=== PATIENT | male | born 1980 | race Caucasian/White ===

== ENCOUNTER 2018-06-17 00:40 | Outpatient (CLI) | payer OTHER, SELFPAY ==
--- NOTE | 2018-06-17 11:59 | DI.CT_ITS ---
SYMPTOMS/DIAGNOSIS: CHRONIC SINUSITIS, J32.[address]: There are no prior comparison exams. No intracranial hemorrhage, mass or infarct is seen. There is no atrophy or visible white matter changes. The ventricles are normal in size. The mastoid air cells appear clear. There is severe opacification of the frontal sinus, as well as several ethmoid sinuses. Please see sinus CT report. IMPRESSION: Sinus disease. No abnormality in the brain. SINUS CT: There is near-complete opacification of both frontal sinuses. There is significant mucus retention within both sphenoid sinuses as well as within both maxillary sinuses, left greater than right. There is opacification of several ethmoid sinuses. The nasal cavity appears clear. There is no evidence of bony erosion or sinus expansion. The ostiomeatal complexes appear occluded bilaterally. The orbits are unremarkable. IMPRESSION: Severe chronic pansinusitis.
== END 2018-06-17 01:00 ==
PROVIDERS: PCP Family Medicine; Visit Provider Family Medicine
DX: J32.4 Chronic pansinusitis (principal)
CPT/HCPCS: 70450; 70486

== ENCOUNTER 2019-06-01 07:32 | Emergency (ER) | payer OTHER, SELFPAY ==
[2019-06-01 07:41] VITALS: BP 143/83; PULSE 51; RESP 15; TEMP 37; O2SAT 99
--- NOTE | 2019-06-01 07:44 | W.ED.GENAD ---
Discharge Plan Disposition Patient Disposition: HOME Condition: Good Discharge Details Chief Complaint: Sorethroat Clinical Impression: Strep throat Primary Care Provider: Lesly Louis ED Provider: Kennedy Painter Home Meds and New Rx's Prescriptions: New amoxicillin 500 mg capsule 500 mg PO BID Qty: 20 RF: 0 No Action No Known Home Meds RF: 0 Discharge Instructions Instructions: Strep Throat (ED) Additional Instructions: You have strep throat. Please take the antibiotic as directed. If you notice any worsening of your symptoms, or any new symptoms such as vomiting, diarrhea, fever, chills, shortness of breath, chest pain, numbness, weakness, or fainting , please return immediately to the emergency department for reevaluation. Please follow up with your primary care provider as soon as possible for reassessment and reevaluation. As always, it was a pleasure participating in your medical care today. Referrals: Lesly Louis MD, [place] [Primary Care Provider] - Medical Decision Making Pleasant 38-year-old male with no past medical history of significance presents with complaint of sore throat for the last 24 to 48 hours, associated fever and chills. Notable erythema in the posterior oropharynx, small amount of tonsillar exudates on the left. Symptoms clinically consistent with strep throat, strep test positive. Will treat with amoxicillin 500 twice daily. Discussed red flags for which to return. I have extensively reviewed the treatment plan and discharge instructions with the patient. I have addressed all patient concerns at this time. The patient was made aware of what symptoms to monitor for that would warrant a return to the emergency department. Discussed the plan with the patient, they demonstrate verbal understanding and agreement with our assessment and plan at this time. HPI General Date/Time Provider Initiated Documentation: 06/01/19 07:44. HPI Narrative: 38-year-old male with no past medical history presents for throat pain for the last 24 hours with associated fever chills. No recent exposure to mono. No complaint of severe neck pain or nuchal rigidity. No significant cough vomiting or diarrhea. No other complaints at this time. Related Data Home Medications Medication Instructions Recorded Confirmed Unknown [No Known Home Meds] 06/01/19 06/01/19 amoxicillin 500 mg PO BID #20 cap 06/01/19 Previous Rx's Medication Instructions Recorded amoxicillin 500 mg PO BID #20 cap 06/01/19 Allergies Allergy/AdvReac Type Severity Reaction Status Date / Time No Known Allergies Allergy Verified 06/01/19 07:45 Review of Systems All systems reviewed & are unremarkable except as noted in HPI and below [facility] Medical History (Updated 06/01/19 @ 07:46 by Kennedy Painter DO) Sinusitis (Chronic) Exam Narrative Exam Narrative: 1.Const: Well-nourished, Well-developed, appearing stated age 2.Eyes: PERRL, no conjunctival injection, and symmetrical lids. 3.ENT: Atraumatic external nose and ears. Moist MM. Neck: Symmetric, trachea midline, No thyromegaly. Patient demonstrates good movement of cervical neck. There is no nuchal rigidity, no nuchal tenderness. Patient is able to flex the neck without any difficulty or significant pain. Negative Kernig's and Brudzinski sign. Mild to moderate erythema in the posterior oropharynx, tonsillar exudate present on the left. No evidence of airway compromise, tonsillar grade 2. 4.CVS: +S1/S2, No murmurs or gallops. Peripheral pulses 2+ and equal in all extremities. Brisk capillary refill in all extremities. 5.RESP: Unlabored respiratory effort. Clear to auscultation bilaterally. No wheezes rales or rhonchi 6.GI: Soft, Nontender/Nondistended, No hepatosplenomegaly. No guarding or rebound. 7.MSK: Normocephalic/Atraumatic, Extremities w/o deformity or ttp No cyanosis or clubbing, Normal movement of all extremities 8.Skin: Warm, Dry. No rashes or lesions. 9.Neuro: weaver hand loom II-XII grossly intact. Sensation grossly intact, no focal neurologic deficits. 10.Psych: (AAO) x3. Appropriate mood and affect Course Lab/Test Results Lab/Test Results: POC Strep Test-NATHANAEL(Rapid) Start: 06/01/19 07:40 Freq: .Rapid Strep Test Status: Active Protocol: Document 06/01/19 07:40 SGL (Rec: 06/01/19 07:40 [facility] [id number]) Strep test-NATHANAEL(Rapid)-POC POC-Strep test-NATHANAEL (Rapid) Positive POC-Strep test-NATHANAEL (Rapid) Positive
[2019-06-01] MEDS: Amoxicillin 500 MG CAP PO (07:48)
== END 2019-06-01 07:50 | disposition home or self-care (01) ==
PROVIDERS: Emergency Provider Student in an Organized Health Care Education/Training Program; PCP Family Medicine
DX: J02.0 Streptococcal pharyngitis (principal)
CPT/HCPCS: 87880; 99283

== ENCOUNTER 2019-11-21 03:05 | Outpatient (CLI) | payer OTHER, SELFPAY ==
--- NOTE | 2019-11-21 14:35 | DI.MRI_ITS ---
EXAM: MR UPPER JOINT RT WO CLINICAL HISTORY: RT ROTATOR CUFF TENDINITIS,RT SHOULDER PAIN,M25.511. TECHNIQUE: Multiplanar multisequence MRI was performed. COMPARISON: 25 March 2019 FINDINGS: BONES: There is no fracture or contusion pattern. JOINTS: The acromioclavicular joint is normal. The glenohumeral joint is normal. TENDONS: Supraspinatus: Unremarkable. Infraspinatus: Unremarkable. Subscapularis: Unremarkable. Teres Minor: Unremarkable. Biceps and [place]: Unremarkable. MUSCLES: Unremarkable. GLENOID LABRUM: Question of a small posterosuperior defect.. SOFT TISSUES: Unremarkable. LIGAMENTS: Unremarkable. OTHER: There is a fluid collection in the spinoglenoid notch measuring 2.4 x 1.4 by 1.1 cm. This has decreased in size significantly from the previous exam. Subacromial and subdeltoid bursae are unrem arkable. IMPRESSION: Decreased size of fluid collection in the spinoglenoid notch. No rotator cuff tear is identified. Que stion of a small post or superior defect of the glenoid labrum. DATA REPOSITORY:
== END 2019-11-21 03:25 ==
PROVIDERS: PCP Family Medicine; Visit Provider Physician Assistant
DX: M25.511 Pain in right shoulder (principal)
CPT/HCPCS: 73221

== ENCOUNTER 2020-01-23 02:36 | Outpatient (CLI) | payer OTHER, SELFPAY ==
[2020-01-24 21:14] LABS: COVID-19 RT-PCR Result NEGATIVE (Negative)
== END 2020-01-23 02:56 ==
PROVIDERS: PCP Family Medicine; Visit Provider Ophthalmology
DX: Z11.59 Encounter for screening for other viral diseases (principal); Z01.818 Encounter for other preprocedural examination
CPT/HCPCS: U0003

== ENCOUNTER 2021-02-24 14:45 | Outpatient (CLI) | payer OTHER, SELFPAY ==
--- NOTE | 2021-02-24 15:50 | DI.MRI_ITS ---
Exam(s) MR UPPER JOINT RT WO EXAM: MR UPPER JOINT RT WO CLINICAL HISTORY: Recurrent weakness pain,paralabral cyst,slap lesion,s43.431a TECHNIQUE: Multiplanar multisequence MRI of the shoulder was performed. COMPARISON: MR from 03/25/2019 and 11/21/2019 were reviewed FINDINGS: MARROW:There is no evidence of fracture, Hill-Sachs deformity, nor ominous osseous lesions. ROTATOR CUFF MECHANISM: AC JOINT/ACROMIUM: There is some degenerative changes in the AC joint. This has increased from the p rior study. Although there are no downgoing osteophytes, is now some intraosseous edema as well as s mall degenerative subarticular cysts on both sides the joint. Mass seen on the axial images. These were not evident on the 03/25/2019 study. Mild impingement There is no evidence of os acromiale. Supraspinatus: Intact. No evidence of tear nor muscle atrophy. Infraspinatus: Intact. No evidence of tear nor muscle atrophy. Teres Minor: Intact. No evidence of tear nor muscle atrophy. Subscapularis/anterior cuff: Intact. No abnormal signal at the level of the multipennate insertional fibers. No significant tear nor atrophy. BICEPS TENDON: Normally position in the intertubercular groove. No evidence of tear. No tenosynovitis. LABRUM: Again noted is an abnormal fluid collection spinoglenoid notch. However, this has significan tly increased in size when compared to the most recent MRI scan of 11/20/2019. This appears to be of paralabral cyst originating off of a relatively focal tear of the posterior aspect of the superior l abrum. This extends posteromedially for distance of 4.9 cm, exhibits a maximum AP measurement of 1.6 cm and maximum craniocaudal measurement of 1.8 cm. Within the collection just above the osseous gle noid there is a focus of hypointensity measuring 4 x 4 millimeter which is probably a calcified body entrapped therein. There is a thin neck in this collection (which exhibits a width of 3 millimeters) which connects the central to the more peripheral aspect of this collection. The collection extends posteriorly interposed between the scapular body and the infraspinatus-teres minor muscles. There i s no atrophy nor denervation signal within these muscles. With respect of the labrum itself, there does not appear to be tearing more anteriorly in the superio r labrum nor more inferiorly in the posterior labrum. There is no tearing of the anterior labrum. T he inferior labrum appears intact. There is no evidence of avulsion of the anterior-inferior labrum, capsule, inferior glenohumeral liga ment complex nor disruption of the scapular periosteum to suggest the presence of a [place] lesion. GLENOHUMERAL JOINT: No joint effusion nor obvious additional loose intra-articular bodies. No chondr al defects. No osteophytes. No degenerative subarticular cysts. No evidence of capsular tear. IMPRESSION: 1. Compared to the prior MRI scan of November 21, 2019 the size of the previously described paralabral cy st has increased, with measurements as above. It is again noted to be extending medially between the scapular body and the infraspinatus/teres minor. However, unlike the 1st study of March 25, 2019, there is no component X superiorly interposed between the supraspinatus and superior glenoid. 2. On today's study the collection appears to contain a 4 x 4 millimeter probable loose body just ab ove the glenoid fossa level. 3. No evidence of rotator cuff tendinitis nor tears and no evidence of atrophy nor denervation signal within the musculature. 4. There has been some increase in degenerative change in the acromioclavicular joint when compared to the prior studies, this consisting of intraosseous edema and small degenerative subarticular cysts on both sides the joint. There does not appear to be increasing degenerative change in the glenohum eral joint. DATA REPOSITORY:
== END 2021-02-24 15:05 ==
PROVIDERS: PCP Family Medicine; Visit Provider Student in an Organized Health Care Education/Training Program
DX: S43.431A Superior glenoid labrum lesion of right shoulder, initial encounter (principal); X58.XXXA Exposure to other specified factors, initial encounter
CPT/HCPCS: 73221

== ENCOUNTER 2021-04-26 02:15 | Outpatient (CLI) | payer OTHER, SELFPAY | END 2021-04-26 02:16 | disposition home or self-care (01) | LOC: LBO 02:15 | PROVIDERS: PCP Family Medicine; Visit Provider Student in an Organized Health Care Education/Training Program ==

== ENCOUNTER 2021-04-26 15:23 | Outpatient (REF) | payer OTHER, SELFPAY ==
[2021-04-26 11:02] LABS: Source Nasal/Nares
[2021-04-26 15:38] LABS: COVID-19 PCR Negative (Negative)
== END 2021-04-26 15:24 | disposition home or self-care (01) ==
LOC: LBN 15:23
PROVIDERS: PCP Family Medicine; Visit Provider Student in an Organized Health Care Education/Training Program
DX: Z20.822 Contact with and (suspected) exposure to COVID-19 (principal); Z01.818 Encounter for other preprocedural examination
CPT/HCPCS: 87635

== ENCOUNTER 2021-04-28 06:10 | Day surgery (SDC) | payer OTHER, SELFPAY ==
[2021-04-28] VITALS (10 sets, daily range): BP systolic 110–133; BP diastolic 55–85; PULSE 61–81; RESP 15–25; TEMP 36.4–36.9; O2SAT 95–98; BMI 31.1
[2021-04-28] MEDS: Lactated Ringers 1,000 ML 100 ML IV (06:37)
--- NOTE | 2021-04-28 07:00 | W.ANESPRE ---
General Info Date of Service Date Performed: 04/28/21 Height: 6 ft 1 in Weight: 107.2 kg Body Mass Index (BMI): 31.1 Surgical Procedure: Operation Date: 04/28/21 07:40 Proposed Procedures Side Surgeon p Shoulder Arthroscopy W/BICEPS TENODESIS, PARA-LABRAL CYST DECOMPRESSION AND SLAP/LABRAL REPAIR Right Laith Sepulveda MD Meds Allergies and Home Medications Allergies Allergy/AdvReac Type Severity Reaction Status Date / Time No Known Allergies Allergy Verified 04/26/21 13:50 Home Medication Medication Instructions Recorded Unknown [No Known Home Meds] 06/01/19 Current Visit Medications: Current Medications Generic Name Dose Route Start Last Admin Trade Name Freq PRN Reason Stop Dose Admin Ringer's Solution 1,000 mls @ 100 mls/hr 04/28/21 06:00 04/28/21 06:37 IV 05/27/21 23:59 100 mls/hr INFUSION ALYSON Administration Cefazolin Sodium/Dextrose 2 gm in 50 mls @ 100 mls/hr 04/28/21 06:00 Ancef Duplex IVPB 04/28/21 16:00 PREOP ALYSON IV Miscellaneous Supplies 1 each 04/28/21 06:00 Iv Access IV 05/27/21 23:59 DIRECTED ALYSON Sodium Chloride 0 ml 04/28/21 06:00 Normal Saline Flush 10 Ml Syr IV 05/27/21 23:59 PRN PRN Sodium Chloride 0 ml 04/28/21 06:00 Normal Saline 10 Ml Vial IJ 05/27/21 23:59 DIRECTED PRN Sterile Water 0 ml 04/28/21 06:00 Water,Injection,Sterile 10 Ml Vial IJ 05/27/21 23:59 DIRECTED PRN PFSH Active Problems Active Problems: Problem Status Onset Code Sinusitis J32.9 Strep throat J02.0 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 SLAP lesion of right shoulder S43.431A Medical History Medical History Back fracture Lumbar back fracture Right rotator cuff tendonitis Injected 08/16/2018 Surgical History Surgical History Hx of [facility] Tobacco Smoking/Tobacco Use Status: Never Alcohol Alcohol Intake: current Alcohol intake frequency: 0-2 drinks per day Alcohol type: beer, wine and hard liquor Substance Use Substance use type: does not use Vital Signs and Lab Results Vital Signs Most Recent Vital Signs in EMR: Most Recent Vital Signs Temp Pulse Resp BP Pulse Ox 36.5 C 72 17 133/85 98 04/28/21 06:14 04/28/21 06:14 04/28/21 06:14 04/28/21 06:14 04/28/21 06:14 Lab Results Blood Type / Crossmatch: No Data to Display Complete Blood Count: No Data to Display Complete Metabolic Panel: No Data to Display Liver Function Panel: No Data to Display Coagulation Panel: No Data to Display Cardiac Panel: No Data to Display Arterial Blood Gas: No Data to Display Venous Blood Gas: No Data to Display Pancreas Panel: No Data to Display Thyroid Panel: No Data to Display Infectious Disease: Coronavirus (COVID-19)(PCR) Negative (Negative) 04/26/21 10:15 04/26/21 Coronavirus 2019 Source Nasal/Nares 04/26/21 10:15 04/26/21 Blood Cultures: No Data to Display Toxicology Panel: No Data to Display Anesthesia Assessment and Plan Anesthesia History Personal History: No History of Anesthesia Complications Family History: No Family History of Anesthesia Complications Exercise Tolerance Exercise Tolerance: Metabolic Equivalents>4 Pertinent Negatives Pertinent Negatives: No Symptoms of GERD Cardiac & Pulmonary Exam Cardiac Exam: Normal S1/S2 Heart Sounds Pulmonary Exam: Clear Bilateral Breath Sounds Implantable Cardiac Device Does patient have a Pacemaker or an ICD?: No Airway Exam Known Difficult Airway: No Mallampati Class: 1 Mouth Opening: Normal (> 3cm) Thyromental Distance: Greater than 3 cm Neck Range of Motion: Full ROM Neck Circumference: Normal Teeth Condition: Normal Dentition ASA Classification ASA Score: ASA 2 Emergency Case?: No NPO Status NPO Status: NPO Clears >2 hours, Solids >8 hours Anesthesia Plan Resuscitation Status: Full Code Anesthesia Technique: General Anesthesia Airway Planned: Endotracheal Tube Pain Management: Surgeon and patient request nerve block Monitors Used: Standard Monitors
[2021-04-28] MEDS: ceFAZolin 2 GM/50 ML BAG IVPB (07:29)
--- NOTE | 2021-04-28 08:20 | W.ANESNERVE ---
Nerve Block Single Injection Procedure Date and Time Date Performed: 04/28/21 Procedure Start: 07:14 Location Where Procedure Performed Procedure Location: Day Surgery Unit Reason Performed: Postoperative Analgesia Requesting Provider: Laith Sepulveda Timeout Performed Timeout Performed: Yes Monitoring Used ECG, Blood Pressure, SpO2 and See EMR for corresponding vital signs Sterility Sterility: Hand Hygiene, Surgical Cap, Surgical Mask, Sterile Gloves and Chlorhexidine Sedation Given During Procedure Sedation Given (Indicate Dose Given): No Sedation given Patient Mental Status Patient Mental Status: Awake Nerve Block 1st Nerve Block: Laterality: Right Block Type: Interscalene Needle / Catheter Used: 100mm SonoPlex II Local Anesthetic Bolus (Indicate Dose Given): Lidocaine used for local infiltration of skin, Injected in 3-5ml increments after negative blood aspiration, Bupivacaine 0.5% Dose:: 10ml and Exparel Dose:: 10ml Additives (Indicate Dose Given): None Ultrasound: Sterile probe cover and gel used Ultrasound Image Saved?: Yes Nerve Stimulator: Not Used Paresthesia: Right Paresthesia Duration: Transient (Into right shoulder when dissecting fascial plane, needle not engaged with plexus.) Procedure Tolerated: No Complications and Patient tolerated well Procedure Outcome: Successful Performed By: Kolby Shepard
--- NOTE | 2021-04-28 11:00 | W.PM.OP ---
Date of service: 04/28/21 Time of Service: 07:30 Operative Note Operative Note DATE OF PROCEDURE: 04/28/21 PRE-OP DIAGNOSIS: Right: 1. SLAP tear 2. Spinoglenoid notch cyst POST-OP DIAGNOSIS: same PROCEDURE: Right: 1. Arthroscopic biceps tenodesis, CPT# 04233. This involved arthroscopically suturing and reattaching the long head of the biceps tendon to the proximal humerus at the superior margin of the bicipital groove with a screw at the correct tension. 2. SLAP repair, CPT# 00074. This involved indirect decompression of the paralabral cyst and suture anchor repair of the posterior superior labral tear. The medical billing assistant was medically required in order to help assist in techniques above, which require positioning the arm, holding the arthroscope, and manipulating multiple instruments and sutures at the same time. This cannot be done without the help of an experienced medical billing assistant. SURGEON: Laith Sepulveda PIPELINE EXECUTIVE: Ridge Price ANESTHESIA TYPE: Local By Surgeon, General LMA/ETT and Primary Nerve Block Refer to Anesthesia Record ESTIMATED BLOOD LOSS: 10 PATHOLOGY: none sent COMPLICATIONS: None Patient was transported to: PACU Patient's condition: stable Implants: Arthrex: Knotless 4.75mm SwiveLock x 1 and Knotless 1.8mm FiberTak x1 Indications: The patient was diagnosed with the above conditions and appropriately indicated for surgical intervention. Please see complete medical record for details. Findings: Exam under anesthesia: Full symmetrical range of motion with no instability or reproducible mechanical symptoms Glenohumeral joint: Intact articular cartilage. Intact subscapularis. Intact articular sided rotator cuff. Intact intra-articular long head biceps tendon without tearing, fraying, or injection. Anterosuperior minor labral fraying with small disruption of the posterior superior chondral labral junction posterior to the biceps anchor. Limited posterior labral fraying. Procedure Description: In the operating room, general anesthesia was induced. Bilateral shoulders were examined. The patient was positioned in the beachchair position. All bony prominences were well-padded. Preoperative cefazolin 2 g antibiotics were administered. The shoulder was prepped and draped in the usual sterile fashion. The correct patient, procedure, and side of the procedure were all verified prior to incision. Starting through the posterior portal a standard complete diagnostic arthroscopy was performed of the glenohumeral joint including inspection of the long head of the biceps, anterior and superior labrum, subscapularis tendon, supraspinatus and infraspinatus tendons, and axillary recess. The glenoid and humeral head cartilage as well as the posterior labrum were inspected from an anterior viewing portal. Significant findings noted above. A 7 mm rigid cannula was inserted anteriorly for arthroscopic biceps tenodesis. An all-arthroscopic suprapectoral biceps tenodesis was then performedl using a Loop N Tack method with a SutureTape FiberLink cinched around and through the tendon. The biceps was tenotomized from the superior labrum and fixated with a knotless SwiveLock suture anchor at the superior margin of the bicipital groove taking care to preserve length tension relationship. The knotless repair stitch was then passed through the biceps tendon at the tenodesis site before being passed back through the anchor and the knotless mechanism engaged securing the tendon with additional compressive fixation. The repair was inspected through range of motion and probed and demonstrated excellent fixation strength. Attention was then turned to the spinal glenoid notch para labral cyst. A 5.5 mm cannula was inserted posteriorly and viewing switched to anteriorly. Various probes and elevators were used to inspect the labrum and search for the cyst. The minor amount of anterosuperior labral fraying and small amount of posterior labral fraying was lightly debrided to a stable margin. The posterior superior labrum demonstrated a small limited defect with the remainder of the labrum quite stable and intact. Tissue quality was excellent. The cyst could not be visualized through the labral tear. A spinal needle was then used through the port of [place] targeting the cyst location and used to aspirate a couple cc of thick gelatinous material. The spinal needle was redirected carefully medially inferiorly and towards the scapular spine with an additional few milliliters of clear yellowish thick gelatinous cyst material aspirated. A spinal needle was also used percutaneously through the skin and directed at the infraspinatus fossa more medially without any additional cyst material withdrawn. Direct manual posterior pressure did not express any additional significant cyst fluid. The percutaneous kit was used to dilate the port of [place]. The repair site was prepared to optimize healing with a small meniscal rasp. Additional blunt probe was passed carefully medially without any cyst material encountered or able to be expressed. The drill guide was then secured to the posterior superior glenoid rim and the drill used through the guide followed by fiber tack anchor placement. The drill was passed in, out, and back in and out given the solid bone. The fiber tack was deployed and did not have the most secure fixation strength. Through the posterior portal a self retrieving suture passer was used to retrieve the repair stitch around the labrum, but while shuttling this repair stitch the anchor pulled back and was removed entirely with its sutures. The drill guide was then placed slightly more superior and directed slightly more medial to avoid convergence. The drill was passed through the guide a single time followed by fiber tack anchor placement. This anchor deployed well with excellent fixation strength. The 5.5 mm posterior cannula was changed to a 7 mm cannula to allow a curved lasso to be used to shuttle the repair suture carefully only around the labrum. The half-pipe cannula through the percutaneous portal was used to retract and ensure no capsular tissue was incorporated. The repair suture was then shuttled through the knotless mechanism in the suture anchor and sequentially tightened under direct visualization achieving excellent closure of the defect and fixation of the labral zone of injury to the glenoid rim. Repair was probed and inspected through shoulder range of motion demonstrated excellent fixation strength with no additional defects superiorly or posteriorly. Again for the final times the spinal needle was used to aspirate the cyst area arthroscopically as well as percutaneously over the marked palpable site of fullness on the posterior shoulder. No additional cystic material could be withdrawn and the cyst area was thoroughly trephinated. The shoulder was copiously irrigated and drained of arthroscopic fluid. All portal sites were copiously irrigated. The portals were closed using 3-0 Monocryl in a buried fashion and then covered with Mastisol, Steri-Strips, Xeroform, dry gauze, and ABDs. The dressings were covered and secured with Medipore tape. The operative extremity was placed into a sling for immobilization. The patient awoke from anesthesia without complication and was transferred to the recovery room in a stable condition.
[2021-04-28] MEDS: EPINEPHrine 30 MG/30 ML VIAL (11:02)
--- NOTE | 2021-04-28 11:10 | W.PM.DSUDISC ---
Discharge Plan Disposition Patient Disposition: HOME Condition: Stable Discharge Details Reason For Visit: Right shoulder surgery Attending Provider: Laith Sepulveda Primary Care Provider: Lesly Louis Home Meds and New Rx's Prescriptions: New naproxen 250 mg tablet 250 - 500 mg PO BID PRNQty: 40 RF: 0 aspirin 81 mg tablet,delayed release (DR/EC) 81 mg PO DAILY 14 Days Qty: 14 RF: 0 oxycodone 5 mg tablet 5 - 10 mg PO Q4H MDD 30 mg PRN (Reason: moderate to severe pain) Qty: 18 RF: 0 Discharge Instructions Additional Instructions: Surgery: Right shoulder arthroscopy with biceps tenodesis, para-labral cyst decompression, and SLAP repair. Activity: For 4 weeks, you should keep your shoulder at your side in a neutral position most of the time except for light ADLs and physical therapy. Encourage full elbow wrist and hand range of motion. Pendulums, isometrics, and scapular stability okay. You should use the sling whenever you are up and about or out of the house. You may adjust the abduction pillow or remove it for comfort. At home it is best to remove the sling and rest the arm on a pillow at your side. Avoid any significant abduction external rotation for 6 weeks. Concentric biceps strengthening after 4 weeks followed by eccentric after 8 weeks. A physical therapy prescription will be sent electronically to begin in about 2-3 weeks. Prescriptions: Aspirin 81 mg take 1 daily to prevent a blood clot for 2 weeks Naproxen 250 mg take 1-2 every 12 hours with a meal as needed for moderate pain Oxycodone 5 mg take 1-2 every 4-6 hours as needed for severe pain You may use [id number] Tylenol (acetaminophen) as needed for mild pain. These pain medications may be taken all at once or in different combinations as needed. Also, recommend Colace (docusate) as a stool softener as surgery and pain medicine cause constipation. Dressings: Remove shoulder bandage after 3 days. Leave the sticky Steri-Strips in place until they fall off or remove them after you shower. Cover the incisions with Band-Aids or leave them open to air. You may shower after 5 days. Follow-up: 10-[address] Sepulveda You may take off the leg compression stockings this evening at home. You may also leave them on a few days longer if you have a history of leg swelling or edema. Let us know right away if you develop any redness, drainage, fevers, chest pain, or trouble breathing. Do not drink alcohol or drive for at least 24 hours after anesthesia. Please call the office during business hours with any questions or concerns. Referrals: Laith Sepulveda MD [ [facility] STAFF PHYSICIAN] - Discharge Orders Discharge Orders: Discharge Order (Routine); Ordered 04/28/21 Ordered By: Laith Sepulveda DS: Diagnosis Discharge Diagnosis (1) Paralabral cyst of right shoulder: Status: Acute (2) SLAP lesion of right shoulder: Status: Acute
--- NOTE | 2021-04-28 12:11 | W.ANESPOSTOP ---
Postoperative Evaluation Date, Time and Location Date Performed: 04/28/21 Time Performed: 12:11 Patient Location: PACU Vital Signs Most Recent Imported Vital Signs: Most Recent Vital Signs Temp Pulse Resp BP Pulse Ox 36.6 C 81 20 116/68 96 04/28/21 12:00 04/28/21 12:00 04/28/21 12:00 04/28/21 12:00 04/28/21 12:00 Pain Score Most Recent Pain Score: Most Recent Pain Score Pain Level 0 04/28/21 12:00 Assessment Mental Status: Awake (Alert & Oriented to Patient Baseline) Airway and Respiratory Function: Patent airway with normal (patient baseline) respiratory exam Cardiovascular Function: Hemodynamically Stable Hydration Status: Adequately Hydrated Nausea & Vomiting: No Nausea or Vomiting Pain: Pt. Denies Any Pain Peripheral Nerve Block: Regional nerve block not resolved at time of post operative discharge
== END 2021-04-28 13:39 | disposition home or self-care (01) ==
PROVIDERS: PCP Family Medicine; Visit Provider Student in an Organized Health Care Education/Training Program
PROC: (CPT 29805; principal; 2021-04-28 07:30)
DX: S43.431A Superior glenoid labrum lesion of right shoulder, initial encounter (principal); X58.XXXA Exposure to other specified factors, initial encounter; M25.811 Other specified joint disorders, right shoulder
CPT/HCPCS: 29807; 29828; 76942; J0690; J1100; J1885; J2001; J2250; J2370; J2405; J2704

== ENCOUNTER 2023-05-21 04:03 | Outpatient (CLI) | payer OTHER, SELFPAY ==
[2023-05-21 08:07] LABS: BUN 13 mg/dL (7-18); CREATININE 0.9 mg/dL (0.70-1.30); Calculated LDL 73 mg/dL (<100); Chloride 102 mmol/L (98-107); Cholesterol 141 mg/dL (<200); Estimated GFR 110.73 (mL/min/1.73m2); Glucose 103 mg/dL (74-106); HDL Cholesterol 62 mg/dL (40-60); Potassium 4.3 mmol/L (3.5-5.1); Sodium 141 mmol/L (136-145); Triglyceride 32 mg/dL (<150)
== END 2023-05-21 04:04 | disposition home or self-care (01) ==
LOC: LBO 04:03
PROVIDERS: PCP Nurse Practitioner Adult Health; Visit Provider Nurse Practitioner Adult Health
DX: Z13.1 Encounter for screening for diabetes mellitus (principal); Z13.220 Encounter for screening for lipoid disorders
CPT/HCPCS: 36415; 80048; 80061

== ENCOUNTER 2025-01-16 06:18 | Day surgery (SDC) | payer OTHER, SELFPAY ==
--- NOTE | 2025-01-15 16:22 | ANES.PREOP_ITS ---
General Info Date of Service Date Performed: 01/16/25 Height: 6 ft 1.5 in Weight: 107 kg Body Mass Index (BMI): 30.7 Surgical Procedure: Operation Date: 01/16/25 07:35 Proposed Procedure Side Surgeon p Colonoscopy/Gastroscopy Radha Mays MD Meds Allergies and Home Medications Allergies Allergy/AdvReac Type Severity Reaction Status Date / Time No Known Allergies Allergy Verified 01/16/25 06:27 Home Medication ?Medication ?Instructions ?Recorded omeprazole 20 mg capsule,delayed 20 mg PO DAILY PRN he artburn #40 03/22/23 release caps dicyclomine 10 mg capsule 10 mg PO TID PRN abdominal 0 11/29/23 pain/spasm #30 caps Current Visit Medications: Current Medications Generic Name Dose Route Start Last Admin Trade Name Freq PRN Reason Stop Dose Admin Ringer's Solution 1,000 mls @ 80 mls/hr 01/16/25 06:00 IV 01/16/25 23:59 INFUSION ALYSON IV Miscellaneous Supplies 1 each 01/16/25 06:00 Iv Access IV 01/16/25 23:59 DIRECTED ALYSON Sodium Biphosphate/Sodium Phosphate 133 ml 01/16/25 06:00 Na Phosphate Enema-Adult 133 Ml Btl CO 01/16/25 23:59 DIRECTED PRN Sodium Chloride 0 ml 01/16/25 06:00 Normal Saline Flush 10 Ml Syr IV 01/16/25 23:59 PRN PRN Sodium Chloride 0 ml 01/16/25 06:00 Normal Saline 10 Ml Vial IJ 01/16/25 23:59 DIRECTED PRN Sterile Water 0 ml 01/16/25 06:00 Water,Injection,Sterile 10 Ml Vial IJ 01/16/25 23:59 DIRECTED PRN PFSH Active Problems Active Problems: Problem Status Onset Code Chronic diarrhea of unknown origin Acute K52.9 Change in consistency of stool Acute ~2023 R19.5 Impaired fasting glucose Acute ~04/2023 R73.01 Heartburn Acute ~2022 R12 Medical History Medical History History of anal fissures SLAP lesion of right shoulder Paralabral cyst of right shoulder Back fracture Lumbar back fracture Strep throat Right rotator cuff tendonitis Injected 08/16/2018 Sinusitis (~2018) h/o RX cipro (cover risk of pseudomonas from netipot); h/o RX augmentin--he may call/portal if symptoms & try augmentin first Surgical History Surgical History S/P colonoscopy (~2011) secondary to rectal bleeding; negative study; next colo at usual screening S/P shoulder surgery (04/28/21) RIGHT cyst decompression, labral repair and biceps tendons Hx of LASIK (01/26/22) Bilateral Tobacco Smoking/Tobacco Use Status: Never Passive smoking exposure: No Second hand exposure: No Alcohol Alcohol Intake: current Alcohol intake frequency: 0-2 drinks per day Alcohol type: beer, wine and hard liquor Substance Use Substance use: Never Substance use type: does not use Vital Signs and Lab Results Vital Signs Most Recent Vital Signs in EMR: Temp Pulse Resp BP Pulse Ox 36.3 C L 54 L 18 143/90 H 99 01/16/25 06:20 01/16/25 06:20 01/16/25 06:20 01/16/25 06:20 01/16/25 06:20 Lab Results Complete Metabolic Panel: Hemoglobin A1c, (4.5-5.7) 5.4 % 12/17/24, 18:4 0 Anesthesia Assessment and Plan Anesthesia History Personal History: No History of Anesthesia Complications Family History: No Family History of Anesthesia Complications Exercise Tolerance Exercise Tolerance: Metabolic Equivalents>4 Cardiac & Pulmonary Exam Cardiac Exam: Normal S1/S2 Heart Sounds Pulmonary Exam: Clear Bilateral Breath Sounds Implantable Cardiac Device Does patient have a Pacemaker or an ICD?: No Airway Exam Known Difficult Airway: No Mallampati Class: 1 Mouth Opening: Normal (> 3cm) Thyromental Distance: Greater than 3 cm Neck Range of Motion: Full ROM Neck Circumference: Normal Teeth Condition: Normal Dentition ASA Classification ASA Score: ASA 2 Emergency Case?: No NPO Status NPO Status: NPO Clears >2 hours, Solids >8 hours Anesthesia Plan Resuscitation Status: Full Code Anesthesia Technique: General Anesthesia Airway Planned: Natural Airway Monitors Used: Standard Monitors Preoperative Comments:: 44 yo for EGD/colo. Sig PMHx: GERD (omeprazole). Previous Anes: - shoulder, glide 3 grade 1, easy mask.
[2025-01-16 06:20] VITALS: BP 143/90; PULSE 54; RESP 18; TEMP 36.3; O2SAT 99
[2025-01-16] MEDS: Lactated Ringers 1,000 ML 80 ML IV (06:49)
[2025-01-16 07:00] VITALS: BMI 30.7
--- NOTE | 2025-01-16 07:37 | BOWEL_PTH ---
PATIENT: Sebastián Lynch LOC: [facility] U#:[id number] AGE/SX: 44/M ROOM: RE01/16/[address]: Radha Mays MD : 1980 BED: DIS: 01/16/2025 SPEC #: [id number] RECD: 01/16/25 12:25 STATUS: JENNIFER PERERA #: [id number] TALITA: 01/16/25 07:[address]: Radha Mays DEPT: Surgical Specimen RECD BY: Susie Vieira ENTERED: 01/16/25 12:28 SP TYPE: Bowel OTHR DR: Amy Brandon, PATRICK Tissues: 1 - BIOPSY BOWEL 2 - STOMACH BIOPSY 3 - BIOPSY BOWEL 4 - BIOPSY BOWEL 5 - BIOPSY BOWEL 6 - BIOPSY BOWEL 7 - BIOPSY BOWEL 8 - BIOPSY BOWEL 9 - BIOPSY BOWEL Procedures: GROSS AND MICRO LEVEL 4 IMMUNOPEROXIDASE STAIN Comments: [id number]
[2025-01-16 08:04] VITALS: BP 114/83; PULSE 71; RESP 16; TEMP 36.4; O2SAT 96
--- NOTE | 2025-01-16 08:11 | W.PM.DSUDISC ---
Date of service: 01/16/25 Discharge Plan Disposition Patient Disposition: Home Condition: Stable Discharge Details Attending Provider: Radha Mays Primary Care Provider: Amy Brandon Home Meds and New Rx's Prescriptions: New colestipol 1 gram tablet 1 g PO DAILY Qty: 30 0RF Continued omeprazole 20 mg capsule,delayed release(DR/EC) 20 mg PO DAILY PRN (Reason: heartburn) Qty: 40 3RF dicyclomine 10 mg capsule 10 mg PO TID PRN (Reason: abdominal pain/spasm) Qty: 30 0RF Discharge Instructions Additional Instructions: EGD was normal. Biopsies taken to check for H pylori and celiac sprue. Will let you know about results when they are available. Colonoscopy was also normal. You had two tiny polyps that I removed. You may need another colonoscopy in 5 years if either of them is an adenoma polyp. I will let you know when the results are back. I took random biopsies all along the TI and colon and rectum today to evaluate for microscopic colitis. I expect them to be normal biopsies based on the way things looked but will let you know when the results are back. I have prescribed colestipol to you. Start by taking one tablet once a day and se how the texture of your stool responds. If you get constipated, discontinue it for a couple of days until your stools return to normal/loose. Then resume it at one half tablet per day and see how you feel. Feel free to adjust the dose you take up to two tablets per day to control the diarrhea. Lets discuss your symptoms in office - return to see me in 2-4 weeks. Activity:: Activity as Tolerated Diet:: As Tolerated Discharge Orders Discharge Orders: Discharge Order (Routine); Ordered 01/16/25 Ordered By: Radha Mays DS: Diagnosis Discharge Diagnosis (1) Chronic diarrhea of unknown origin: Status: Acute (2) Polyp of transverse colon: Status: Acute (3) Polyp of rectum: Status: Acute
--- NOTE | 2025-01-16 08:16 | W.COLOREPORT ---
Date of service: 01/16/25 Time of Service: 07:55 Colonoscopy Report Date of procedure: 01/16/25 Pre-op diagnosis general: Diarrhea of unknown origin Post-op diagnosis procedure note: other (1. Diarrhea of unknown origin. 2. transverse colon polyp. 3. rectum polyp) Procedure: Colonoscopy with biopsy Surgeon: Radha Mays Anesthesia Type: General:No Airway Estimated blood loss (mL): 2 Pathology: other (1. Terminal ileum biopsy. 2. ascending colon biopsy. 3. transverse colon polyp. 4. transverse colon biopsy. 5. descending colon biopsy. 6. Rectum biopsy. 7. rectum polyp) Prep: Miralax/Dulcolax (Excellent) Procedure Description: Informed consent was obtained and the patient was taken to the procedure area. The patient was placed in left lateral decubitus position on the procedure table. Timeout was performed. Anesthesia was induced. A lubricated colonoscope was inserted through the anus and passed to the cecum. The cecum was identified by the ileocecal valve and the appendiceal orifice. The scope was then slowly withdrawn and the colonic and rectal mucosa examined. TI intubated and examined. It appears normal. There is no inflammatory change in colon or rectum. Transverse colon polyp 5mm sessile excised with cold forceps. No diverticulosis was seen. Rectum polyp 3mm sessile excised with cold forceps. The scope was retroflexed in the anorectal junction examined. Uncomplicated internal hemorrhoids present. Due to chronic diarrhea, cold forceps biopsies obtained for evaluation for microscopic colitis. Biopsies obtained from terminal ileum, ascending colon, transverse colon, descending colon and rectum. Assessment and plan: Diarrhea transverse colon polyp rectum polyp Unremarkable colonoscopy for cause for diarrhea. Follow up in office to review biopsy results. If normal, this is IBS. I will try colestipol for him, rx sent. Next colonoscopy due in 5 years if either polyp is adenomatous. Due in 10 years if both are hyperplastic.
[2025-01-16 08:27] VITALS: BP 111/72; PULSE 71; RESP 16; TEMP 36.2; O2SAT 99
--- NOTE | 2025-01-16 08:31 | W.ANESPOSTOP ---
Postoperative Evaluation Date, Time and Location Date Performed: 01/16/25 Time Performed: 08:20 Patient Location: Day Surgery Unit Vital Signs Most Recent Imported Vital Signs: Most Recent Vital Signs Temp Pulse Resp BP Pulse Ox 36.4 C L 71 16 114/83 96 01/16/25 08:04 01/16/25 08:04 01/16/25 08:04 01/16/25 08:04 01/16/25 08:04 Pain Score Most Recent Pain Score: Most Recent Pain Score Pain Level 0 01/16/25 08:04 Assessment Mental Status: Awake (Alert & Oriented to Patient Baseline) Airway and Respiratory Function: Patent airway with normal (patient baseline) respiratory exam Cardiovascular Function: Hemodynamically Stable Hydration Status: Adequately Hydrated Nausea & Vomiting: No Nausea or Vomiting Pain: Pt. Denies Any Pain Peripheral Nerve Block: Patient did not receive a nerve block
== END 2025-01-16 08:45 | disposition home or self-care (01) ==
PROVIDERS: PCP Nurse Practitioner Adult Health; Visit Provider Surgery
PROC: (CPT 45380; principal; 2025-01-16 07:30)
DX: K52.9 Noninfective gastroenteritis and colitis, unspecified (principal); D12.3 Benign neoplasm of transverse colon; K62.1 Rectal polyp; K21.9 Gastro-esophageal reflux disease without esophagitis
CPT/HCPCS: 45380; 88305; 88361; J2250; J2405; J2704